=== PATIENT | male | born 1945 | race Caucasian/White ===

== ENCOUNTER 2018-04-25 22:00 | Observation (INO) ==
--- NOTE | 2018-04-25 22:27 | ERNOTE ---
Syncope ER HPI Stated Complaint: fall Time Seen by Provider: 04/25/18 22:10 Source: patient, family Exam Limitations: no limitations Immunizations: IMMUNIZATION HX Immunizations Up to Date Yes Allergies/Adverse Reactions: Allergies No Known Allergies Allergy (Unverified 04/25/18 22:17) Home Medications: HOME MEDICATIONS Clonazepam 0.5 mg PO TID PRN 04/26/18 [Last Taken Unknown] Docusate Sodium 100 mg PO DAILY 04/26/18 [Last Taken Unknown] Gabapentin [Neurontin] 300 mg PO BID 04/26/18 [Last Taken Unknown] Omeprazole 20 mg PO BID 04/26/18 [Last Taken Unknown] Rosuvastatin Calcium 40 mg PO HS 04/26/18 [Last Taken Unknown] Sertraline HCl [Zoloft] 50 mg PO DAILY 04/26/18 [Last Taken Unknown] Warfarin Sodium 5 mg PO QPM 04/26/18 [Last Taken Unknown] glipiZIDE [Glipizide] 5 mg PO DAILY 04/26/18 [Last Taken Unknown] - History of Present Illness Narrative: Family found patient on bathroom floor around 20:30, he cannot say how he got there, whether he fell, or what happened prior. He had difficulty ambulating, transferred in the ER with one assist. He currently denies any complaints, no pain, no shortness of breath Date (Duration): 04/25/18 Time (Timing): 20:30 Symptoms prior to episode: Present: unknown Activity at time of episode: Present: other Character of event: Absent: seizure activity observed, incontinent Location of Injury: Present: none Current Symptoms: Present: back to normal Prior Treament: Denies: recently seen, similar symptoms before Review of Systems - Review of Systems Constitutional: Absent: recent illness, fever EYE: Absent: vision changes ENT: Absent: nose congestion, sore throat Respiratory: Present: cough. Absent: shortness of breath Cardiology: Absent: chest pain Gastrointestinal/Abdominal: Absent: nausea, vomiting, abdominal pain Genitourinary: Present: no symptoms reported Musculoskeletal: Absent: back pain, neck pain Neurological: Absent: headache, weakness, numbness Medical History (Last Updated 04/25/18 @ 23:29 by Promise Lockhart MD) CVA (cerebral vascular accident) HX: [facility] anticoagulant use Poor historian Surgical History: Surgical History (Last Reviewed 04/25/18 @ 23:29 by Promise Lockhart MD) History of heart valve replacement History of open heart surgery Family History: Family History (Last Updated 04/25/18 @ 22:30 by Maya Betancourt RN) Other Poor historian Social History: Preferred Language Albanian Smoking Status Former smoker Alcohol Use occasionally Drug Use none No Social History Section defined Physical Exam - Physical Exam General Appearance: Present: wd/wn, alert, no apparent distress Head Exam: Present: normal inspection, no evidence of injury Eye Exam: Normal inspection: bilateral, PERRL: bilateral, EOMI: bilateral Neck: Present: normal inspection, supple Respiratory: Present: no respiratory distress, normal breath sounds, no accessory muscle use, lungs clear Cardiovascular/Chest: Present: regular rate, rhythm, no murmur Gastrointestinal/Abdominal: Present: normal bowel sounds, nontender, nondistended, soft Extremity Exam: Present: no edema Neurological Exam: Present: alert, oriented, normal mood/affect, no motor/sensory deficits Skin Exam: Present: normal color, warm/dry ED Progress - Results and Orders Patient's Lab Results:: I have reviewed the patient's lab results. - Vital Signs Patient's Vital Signs:: I have reviewed the patient's vital signs. Vital Signs: Vital Signs 04/25/18 22:13 Temperature 38.2 C H Pulse Rate 113 H Respiratory Rate 11 L Blood Pressure 131/84 O2 Sat by Pulse Oximetry 97 - EKG EKG: NSR - sinus tachycardia, , nonspecific ST T wave changes, other - first degree AV block EKG read: Interp. by me - CT/Ultrasound CT/Ultrasound Narrative: CT head: no acute findings CT chest: no focal infiltrate, moderate amount of contrast in right pleural space, appears chronic - Progress/Reassessment Chief Complaint: Syncopal Episode Progress Note-Subjective: 04/25/18 23:26 discussed Xray with radiologist, possible mass, cannot r/o pneumonia will get CT to evaluate further 04/26/18 00:52 discussed results with other daughter who is present now [facility]'t [facility] here patient meets SRIRS criteria with temp and HR but procalcitonin is very low, no obvious source of infection found, consider artificial valve, will give dose of antibiotics 04/26/18 00:[address] Barosy, okay to admit for observation for syncope Departure Clinical Impression: Over-anticoagulated Syncope Qualifiers: Syncope type: unspecified Qualified Code(s): R55 - Syncope and collapse - Departure Disposition: Still a patient Condition: Stable
[2018-04-25 22:37] LABS: Hemoglobin 15.3 gm/dL (13.5-18.0); Mean Cell Volume 91.5 fl (78-100); Mean Corpuscular Hemoglobin 31.1 pg (27-31); Mean Platelet Volume 9.4 fl (8-11.3); Neutrophil # 9.3 K/mm3 (1.3-6.0); Neutrophil % 85.3 % (42-75.0); Platelet Count 156 K/mm3 (150-450); Red Blood Count 4.92 M/mm3 (4.7-6.0); Red Cell Distribution Width 11.9 % (11.5-14.0); White Blood Count 10.9 K/mm3 (4.0-10.5)
[2018-04-25 22:56] LABS: ALT 13 U/L (19-67); AST 23 U/L (0-48); Albumin * 3.4 gm/dl (3.4-5.0); Alkaline Phosphatase * 87 U/L (50-170); Anion Gap 11.8 mmol/L (6.8-13.8); BUN/Creatinine Ratio 11.1 (9.0-21.6); Bilirubin, Total 0.7 mg/dL (0.0-1.1); Blood Urea Nitrogen 13 mg/dL (6-23); Ca. Corrected For Albumin 8.7 mg/dL (8.4-10.2); Calcium * 8.5 mg/dL (7.9-10.9); Carbon Dioxide 26.2 mmol/L (24-32.6); Chloride 98 mmol/L (97-106); Glucose * 340 mg/dL (70-110); Sodium 132 mmol/L (132-142); Total Protein 7.2 gm/dL (6.2-8.2); Troponin I Less than 0.017 ng/mL (0.00-0.10)
[2018-04-25 23:04] LABS: Prothrombin Time (Patient) 50.7 Seconds (9.0-11.0)
[2018-04-25 23:05] LABS: Partial Thrombolplastin Time 43.6 Seconds (24-32)
[2018-04-25 23:06] LABS: INR 4.99 INR (0.90-1.10)
[2018-04-25 23:18] LABS: Urine Bilirubin Negative (NEGATIVE); Urine Blood 50 /ul (NEGATIVE); Urine Ketone 50 mg/dL (NEGATIVE); Urine Nitrite Negative (NEGATIVE); Urine Protein 15 mg/dL (NEGATIVE); Urine Specific Gravity 1.025 SP.GR. (1.005-1.030); Urine Urobilinogen Normal (NORMAL)
[2018-04-25] MEDS ORDERED: NORMAL SALINE 1,000 ML IV PRN (23:21)
[2018-04-25] MEDS ORDERED: ACETAMINOPHEN 325 MG TABLET PO ONE (23:28)
[2018-04-25 23:39] LABS: Urine Appearance Clear (CLEAR); Urine Bacteria None Seen; Urine Color Yellow; Urine RBC 0-5 /hpf (0-5); Urine WBC None Seen /hpf (0-5)
[2018-04-25 23:40] LABS: Cocaine Ur Negative (NEGATIVE); Urine Barbiturate Negative (NEGATIVE); Urine Benzodiazepines Negative (NEGATIVE); Urine Opiates Negative (NEGATIVE); Urine PCP Negative (NEGATIVE); Urine THC Negative (NEGATIVE)
[2018-04-26] MEDS ORDERED: DEXTROSE 5 % IN WATER 100 ML BAG IV ONE (00:53)
[2018-04-26] MEDS ORDERED: NORMAL SALINE 1,000 ML IV ONE (01:46)
[2018-04-26] MEDS ORDERED: INSULIN REGULAR, HUMAN 100 UNITS/ML VIAL IV ONE (12:18)
[2018-04-26] MEDS ORDERED: clonazePAM 0.5 MG TABLET PO PRN (12:19)
[2018-04-26] MEDS ORDERED: GABAPENTIN 600 MG TABLET PO SCH (12:30)
[2018-04-26] MEDS ORDERED: DOCUSATE SODIUM 100 MG CAPSULE PO SCH (12:30)
[2018-04-26] MEDS ORDERED: glipiZIDE 5 MG TABLET PO SCH (12:30)
[2018-04-26] MEDS ORDERED: SERTRALINE HCL 50 MG TABLET PO SCH (12:30)
[2018-04-26] MEDS ORDERED: PANTOPRAZOLE SODIUM 20 MG TABLET.DR PO SCH (12:30)
[2018-04-26] MEDS ORDERED: GABAPENTIN 300 MG CAPSULE PO SCH (12:40)
--- NOTE | 2018-04-26 12:41 | PN ---
Subjective - Date and Time Seen Date: 04/26/18 Time: 12:27 Subjective Narrative: I lost consciousness last night but now I feel fine. 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 Patient lives with his daughter who discovered him on the bathroom floor unconscious but arousable. Daughter did not witness the fall and is not sure how long he was on the floor for. Patient reports that he was just urinating and all of a sudden passed out and does not recall anything after that, he explains that he does not know how he got on to the floor. He denies occurrence of this event in the past or any palpitations lightheadedness or dizziness.. Patient is normally seen at the [facility] but wished to be hospitalized at our facility. Upon arriving at the ER, head CT without contrast, EKG, labs, and chest x-rays were ordered. Head CT ruled out any acute changes or hemorrhage, checks x-ray demonstrated a hyperdense area in the left lung so chest CT was ordered for follow-up which revealed no acute changes but a pulling of fluid in the lower lobe of the left lung. The radiologist thinks this may be related to a pleurodesis with chest tubes done in the past. Patient's daughter reports that patient did have chest tubes and when he had his open heart surgery 17 years ago, so this might explain the abnormality on the chest CT. EKG demonstrates sinus tachycardia which has since resolved and also a first-degree heart block and nonspecific ST-T wave changes, however patient denies chest pain and or any other symptoms. We do not have a baseline EKG so we do not know of these changes are chronic. Patient's Coumadin was placed on hold due to a supratherapeutic INR of over 4. Repeat INR has been ordered. Therefore patient was placed in outpatient observation for reevaluation and close monitoring. - Review of Systems Generalized/Overall Review: Reports: No Symptoms Reported EENTM: Reports: No Symptoms Reported Respiratory: Reports: No Symptoms Reported Cardiac: Reports: Syncope Abdominal: Reports: No Symptoms Reported Genitourinary Symptoms: Reports: No Symptoms Reported Musculoskeletal Complaints: Reports: No Symptoms Reported Neurological: Reports: No Symptoms Reported Skin: Reports: No Symptoms Reported Endocrine: Reports: No Symptoms Reported - Vitals Vitals: Last Vital Signs Temp 36.9 C 04/26/18 08:55 Pulse 84 04/26/18 08:55 Resp 18 04/26/18 08:55 BP 124/63 04/26/18 08:55 Pulse Ox 95 04/26/18 08:55 - Abnormal Lab Findings Abnormal Lab Findings: Abnormal Lab Results 04/25/18 04/25/18 04/25/18 Range/Units 22:19 22:35 22:35 WBC 10.9 H (4.0-10.5) K/mm3 MCH 31.1 H (27-31) pg Immature Gran % (Auto) 0.60 H (0.001-0.429) % Immature Gran # (Auto) 0.06 H (0.000-0.0310) K/mm3 Neutrophils % 85.3 H (42-75.0) % Lymphocytes % 5.9 L (20-51) % Neutrophils # 9.3 H (1.3-6.0) K/mm3 Lymphocytes # 0.64 L (1.5-3.5) k/mm3 PT 50.7 H (9.0-11.0) Seconds INR (Anticoag Therapy) 4.99 H* (0.90-1.10) INR PTT (Enoc) 43.6 H (24-32) Seconds Random Glucose 340 H (70-110) mg/dL Lactic Acid, Venous (0.4-2.0) mmol/L ALT 13 L (19-67) U/L Procalcitonin (0.05-0.50) ng/mL Urine Protein (NEGATIVE) mg/dL Urine Glucose (UA) (NEGATIVE) mg/dL Urine Blood (NEGATIVE) /ul 04/25/18 04/25/18 04/26/18 Range/Units 22:35 22:35 00:00 WBC (4.0-10.5) K/mm3 MCH (27-31) pg Immature Gran % (Auto) (0.001-0.429) % Immature Gran # (Auto) (0.000-0.0310) K/mm3 Neutrophils % (42-75.0) % Lymphocytes % (20-51) % Neutrophils # (1.3-6.0) K/mm3 Lymphocytes # (1.5-3.5) k/mm3 PT (9.0-11.0) Seconds INR (Anticoag Therapy) (0.90-1.10) INR PTT (Enoc) (24-32) Seconds Random Glucose (70-110) mg/dL Lactic Acid, Venous 2.3 H* (0.4-2.0) mmol/L ALT (19-67) U/L Procalcitonin Less than 0.05 L (0.05-0.50) ng/mL Urine Protein 15 H (NEGATIVE) mg/dL Urine Glucose (UA) >=1000 H (NEGATIVE) mg/dL Urine Blood 50 H (NEGATIVE) /ul - Exam Constitutional: Present: Alert, Oriented x3, Cooperative, Well developed, Well nourished, No distress, Elderly ENT Exam: Present: normal ENT inspection, hearing grossly normal, pharynx normal, TMs normal Neck: Present: non-tender, full range of motion, supple, normal inspection, trachea midline Breasts: Present: Exam deferred Respiratory: Present: chest non-tender, lungs clear, normal breath sounds, no respiratory distress, no accessory muscle use Cardiovascular/Chest: Present: normal peripheral pulses, regular rate, rhythm, no chest tenderness, no edema, no gallop, no JVD, no murmur, other - Aortic click Abdomen: Present: Normal bowel sounds, soft, nontender, nondistended, no rebound tenderness, no hepatospenomegaly, no masses /Rectal: Present: Exam deferred Extremity: Present: normal range of motion, non-tender, normal inspection, no pedal edema, no calf tenderness Skin Exam: Present: normal color, warm/dry, no cyanosis Lymphatic: Present: no adenopathy Neurologic: Present: tow operator II-XII nml as tested, normal cerebellar test, no motor/sensory deficits, alert, normal mood/affect, oriented x 3 Appearance: Present: appropriate appearance, appropriate insight, neat, no memory impairment Eye contact: Present: cooperative, good eye contact, normal speech Thoughts: Present: normal thought pattern, no apparent hallucination Assessment/Plan Plan Narrative: Patient was admitted to outpatient observation for evaluation and monitoring. We will put Coumadin on hold reorder an INR.. 2D echo has also been ordered for evaluation of heart valves and cardiac function also to evaluate possible aortic aneurysm that was reported on chest CT report. Patient and his family has been informed of all the findings they are in agreement with the plan. - Problems/Diagnosis (1) Syncope and collapse Problem: Acute (2) Aortic valve replaced Problem: Chronic (3) Diabetes 1.5, managed as type 2 Problem: Chronic (4) Supratherapeutic INR Problem: Acute
[2018-04-26] MEDS ORDERED: CIPROFLOXACIN IN 5 % DEXTROSE 400 MG/200 ML BAG IV SCH (12:45)
[2018-04-26 12:48] LABS: Hemoglobin A1C 10.5 % (4.00-6.0)
--- NOTE | 2018-04-26 12:53 | DS ---
(1) Syncope and collapse Problem: Acute (2) Aortic valve replaced Problem: Chronic (3) Diabetes 1.5, managed as type 2 Problem: Chronic (4) Supratherapeutic INR Problem: Acute Description of Stay: 73-year-old male admitted for syncopal episode that occurred at his home was evaluated at bedside and was found to be afebrile and in no acute distress. There has been no recurrence of loss of consciousness and patient denies dizziness lightheadedness or any other symptoms. Patient maintains stable vitals and has sinus rhythm. 2D echo was ordered to evaluate cardiac function and to evaluate a a sending aortic aneurysm that was reported on chest CT. Patient's family was instructed to look for 2D echo results after discharge to take his PCP. Discharge planning is underway to send patient home. Procedures Performed: none Results and Findings: Lab Pending Results 04/25/18 22:19: WBC 10.9 H, RBC 4.92, Hgb 15.3, Hct 45.0, MCV 91.5, MCH 31.1 H, MCHC 34.0, RDW 11.9, Plt Count 156, MPV 9.4, Immature Gran % (Auto) 0.60 H, Immature Gran # (Auto) 0.06 H, Neutrophils % 85.3 H, Lymphocytes % 5.9 L, [place] cytes % 7.8, Eosinophils % 0.0, Basophils % 0.4, Nucleated RBC % 0.0, Neutrophils # 9.3 H, Lymphocytes # 0.64 L, Monocytes # 0.9, Eosinophils # 0.0, Absolute Basophils 0.0 04/25/18 22:25: VBG pH 7.402 04/25/18 22:35: PT 50.7 H, INR (Anticoag Therapy) 4.99 H*, PTT (Enoc) 43.6 H 04/25/18 22:35: Sodium 132, Plasma Sodium 136, Potassium 4.0, Chloride 98, Carbon Dioxide 26.2, Anion Gap 11.8, BUN 13, Creatinine 1.17, Est GFR (Non-Af Amer) 65, BUN/Creatinine Ratio 11.1, Random Glucose 340 H, Calcium 8.5, Calcium Adj for Albumin 8.7, Total Bilirubin 0.7, AST 23, ALT 13 L, Alkaline Phosphatase 87, Troponin I Less than 0.017, Total Protein 7.2, Albumin 3.4, Ethyl Alcohol Less than 3.0, Serum Ketones Negative 04/25/18 22:35: Lactic Acid, Venous 2.3 H* 04/25/18 22:35: Influenza Type A Ag Negative, Influenza Type B Ag Negative 04/25/18 22:35: Urine Color Yellow, Urine Appearance Clear, Urine pH 6.0, Ur Specific [place] 1.025, Urine Protein 15 H, Urine Glucose (UA) >=1000 H, Urine Ketones 50, Urine Blood 50 H, Urine Nitrate Negative, Urine Bilirubin Negative, Prot Sulfosalicylic Acd Negative, Urine Urobilinogen Normal, Ur Leukocyte Esterase Negative, Urine RBC 0-5, Urine WBC None seen, Ur Epithelial Cells None seen, Urine Bacteria None seen, Urine Culture Comments No culture indicated 04/25/18 22:35: Urine Opiates Screen Negative, Barbiturate Screen Negative, Ur Phencyclidine Scrn Negative, Urine Amphetamine Negative, U Benzodiazepines Scrn Negative, Urine Cocaine Screen Negative, Urine Marijuana (THC) Negative 04/25/18 22:35: Creatine Kinase 51 04/26/18 00:00: Procalcitonin Less than 0.05 L 04/26/18 01:30: Lactic Acid, Venous 1.6 Discharge Location: Home Disposition: Home self-care Condition: Stable Face to Face Encounter completed per [facility] Guidelines: No Discharge Activity: Activity as tolerated Discharge Diet: Consistent carbs Additional Patient Instructions (free text): -Appointment scheduled to discuss Medicare options for Thursday at 0915. Call [phone] for list of information to bring with him to the appointment or to reschedule. -May call [phone] for further information on Meals on Wheels if interested. -Call patient's daughter Maria D with updated plan of care at [phone]. Complete Home Medications List: Complete Home Medication List: Clonazepam 0.5 mg PO TID PRN 04/26/18 Docusate Sodium 100 mg PO DAILY 04/26/18 Gabapentin [Neurontin] 300 mg PO BID 04/26/18 Omeprazole 20 mg PO BID 04/26/18 Rosuvastatin Calcium 40 mg PO HS 04/26/18 Sertraline HCl [Zoloft] 50 mg PO DAILY 04/26/18 glipiZIDE [Glipizide] 5 mg PO DAILY 04/26/18
[2018-04-26 13:30] LABS: Prothrombin Time (Patient) 32.7 Seconds (9.0-11.0)
[2018-04-26 13:46] LABS: INR 3.23 INR (0.90-1.10)
[2018-04-26 15:42] VITALS: BP 132/63
[2018-04-26] MEDS ORDERED: INSULIN LISPRO 100 UNITS/ML VIAL SC SCH (17:00)
[2018-04-26] MEDS ORDERED: ROSUVASTATIN CALCIUM 20 MG TABLET PO SCH (21:00)
--- NOTE | 2018-04-29 13:18 | HP ---
Chief Complaint - Chief Complaint Date of Service: 04/26/18 Time of Service: 11:00 Chief Complaint: I fell and lost conciousness. 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 Patient lives with his daughter who discovered him on the bathroom floor unconscious but arousable. Daughter did not witness the fall and is not sure how long he was on the floor for. Patient reports that he was just urinating and all of a sudden passed out and does not recall anything after that, he explains that he does not know how he got on to the floor. He denies occurrence of this event in the past or any palpitations lightheadedness or dizziness.. Patient is normally seen at the [facility] but wished to be hospitalized at our facility. Upon arriving at the ER, head CT without contrast, EKG, labs, and chest x-rays were ordered. Head CT ruled out any acute changes or hemorrhage, checks x-ray demonstrated a hyperdense area in the left lung so chest CT was ordered for follow-up which revealed no acute changes but a pulling of fluid in the lower lobe of the left lung. The radiologist thinks this may be related to a pleurodesis with chest tubes done in the past. Patient's daughter reports that patient did have chest tubes and when he had his open heart surgery 17 years ago, so this might explain the abnormality on the chest CT. EKG demonstrates sinus tachycardia which has since resolved and also a first-degree heart block and nonspecific ST-T wave changes, however patient denies chest pain and or any other symptoms. We do not have a baseline EKG so we do not know of these changes are chronic. Patient's Coumadin was placed on hold due to a supratherapeutic INR of over 4. Repeat INR has been ordered. Therefore patient was placed in outpatient observation for reevaluation and close monitoring. Medical History (Last Reviewed 04/26/18 @ 02:47 by Monica Hanna RN) Alcohol dependence in remission Anemia Anxiety Aortic valve stenosis Atrial fibrillation CVA (cerebral vascular accident) Chronic post-traumatic stress disorder (PTSD) Diabetes mellitus HX: computer terminal operator anticoagulant use Hyperlipidemia Poor historian Pulmonary nodule RECURRENT DEPRESSION DISORDER Surgical History: Surgical History (Last Reviewed 04/26/18 @ 11:35 by Yessica Hogan) History of heart valve replacement History of heart valve replacement with mechanical valve History of open heart surgery Family History: Family History (Last Updated 04/29/18 @ 13:11 by Jina Mcadams MD) Other Poor historian Social History: Patient Lives/Resources Home Utilized Occupation Retired Preferred Language Serbian Do you have any oriental orthodox or Yes: Congregational cultural preference? Smoking Status Former smoker Have you smoked in the past 12 No months Do you dip or chew tobacco No Alcohol Use occasionally Drug Use none No Social History Section defined Peds Patient Hx - Developmental: No Pertinent Hx Peds Patient Hx - Medical: No Pertinent Hx Peds Patient Hx - Cardiac/Respiratory: No Pertinent Hx Peds Patient Hx - Surgical: No Surgical History Patient History - Cancer: No Hx of Cancer Review Of Systems (GEN) - Review of Systems Generalized/Overall Review: Present: No Symptoms Reported. Absent: Chills EENTM: Present: No Symptoms Reported Respiratory: Present: No Symptoms Reported Cardiac: Present: No Symptoms Reported Abdominal: Present: No Symptoms Reported Genitourinary: Present: No Symptoms Reported Musculoskeletal: Present: No Symptoms Reported Neurological: Present: Other - LOC 1 day ago. Skin: Present: No Symptoms Reported Endocrine: Present: No Symptoms Reported Immunizations: IMMUNIZATION HX Immunizations Up to Date Yes Allergies/Adverse Reactions: Allergies Allergy/AdvReac Type Severity Reaction Status Date / Time No Known Allergies Allergy Unverified 04/25/18 22:17 Home Medications: HOME MEDICATIONS Clonazepam 0.5 mg PO TID PRN 04/26/18 [Last Taken Unknown] Docusate Sodium 100 mg PO DAILY 04/26/18 [Last Taken Unknown] Gabapentin [Neurontin] 300 mg PO BID 04/26/18 [Last Taken Unknown] Omeprazole 20 mg PO BID 04/26/18 [Last Taken Unknown] Rosuvastatin Calcium 40 mg PO HS 04/26/18 [Last Taken Unknown] Sertraline HCl [Zoloft] 50 mg PO DAILY 04/26/18 [Last Taken Unknown] glipiZIDE [Glipizide] 5 mg PO DAILY 04/26/18 [Last Taken Unknown] Exam - Exam Vital Signs: Vital Signs - Last Taken Temp 36.8 C 04/26/18 15:41 Pulse 68 04/26/18 15:41 Resp 16 04/26/18 15:41 BP 132/63 04/26/18 15:41 Pulse Ox 97 04/26/18 15:41 Constitutional: Present: Alert, Oriented x3, Cooperative, Well developed, Well nourished, No distress ENT Exam: Present: normal ENT inspection, pharynx normal, hard of hearing Eye Exam: bilateral eye: normal inspection, PERRL, EOMI, abnormal EOM Neck: Present: non-tender, full range of motion, supple, normal inspection, trachea midline Back Exam: Present: normal inspection, no CVA tenderness, no vertebral tenderness Breasts: Present: Exam deferred Respiratory: Present: chest non-tender, lungs clear, normal breath sounds, no respiratory distress, no accessory muscle use Cardiovascular/Chest: Present: normal peripheral pulses, regular rate, rhythm, no chest tenderness, no edema, no gallop, no JVD, no murmur Peripheral Pulses: carotid (R): 3+, carotid (L): 3+, femoral (R): 3+, femoral (L): 3+, dorsalis-pedis (R): 3+, dorsalis-pedis (L): 3+ Abdomen: Present: Normal bowel sounds, soft, nontender, nondistended, no rebound tenderness, no hepatospenomegaly, no masses /Rectal: Present: Exam deferred Extremity: Present: normal range of motion, non-tender, normal inspection, no pedal edema, no calf tenderness, normal capillary refill Skin Exam: Present: normal color, warm/dry, no cyanosis Lymphatic: Present: no adenopathy Neurologic: Present: computer game designer II-XII nml as tested, normal cerebellar test, no motor/sensory deficits, alert, normal mood/affect, oriented x 3 Appearance: Present: appropriate appearance, appropriate insight, neat, no memory impairment Eye contact: Present: cooperative, good eye contact, normal speech Thoughts: Present: normal thought pattern, no apparent hallucination Diagnostic Studies: Laboratory Results WBC 10.9 K/mm3 (4.0-10.5) H 04/25/18 22:19 RBC 4.92 M/mm3 (4.7-6.0) 04/25/18 22:19 Hgb 15.3 gm/dL (13.5-18.0) 04/25/18 22:19 Hct 45.0 % (42.0-52.0) 04/25/18 22:19 MCV 91.5 fl (78-100) 04/25/18 22:19 MCH 31.1 pg (27-31) H 04/25/18 22:19 MCHC 34.0 g/dl (32-36) 04/25/18 22:19 RDW 11.9 % (11.5-14.0) 04/25/18 22:19 Plt Count 156 K/mm3 (150-450) 04/25/18 22:19 MPV 9.4 fl (8-11.3) 04/25/18 22:19 Immature Gran % (Auto) 0.60 % (0.001-0.429) H 04/25/18 22:19 Immature Gran # (Auto) 0.06 K/mm3 (0.000-0.0310) H 04/25/18 22:19 Neutrophils % 85.3 % (42-75.0) H 04/25/18 22:19 Lymphocytes % 5.9 % (20-51) L 04/25/18 22:19 Monocytes % 7.8 % (0.0-9) 04/25/18 22:19 Eosinophils % 0.0 % (0.0-3.0) 04/25/18 22:19 Basophils % 0.4 % (0.0-1.0) 04/25/18 22:19 Nucleated RBC % 0.0 k/mm3 (0-1) 04/25/18 22:19 Neutrophils # 9.3 K/mm3 (1.3-6.0) H 04/25/18 22:19 Lymphocytes # 0.64 k/mm3 (1.5-3.5) L 04/25/18 22:19 Monocytes # 0.9 k/mm3 (0.0-1.0) 04/25/18 22:19 Eosinophils # 0.0 k/mm3 (0.0-0.7) 04/25/18 22:19 Absolute Basophils 0.0 k/mm3 (0.0-0.1) 04/25/18 22:19 PT 32.7 Seconds (9.0-11.0) H 04/26/18 13:18 INR (Anticoag Therapy) 3.23 INR (0.90-1.10) H 04/26/18 13:18 PTT (Treutlen) 43.6 Seconds (24-32) H 04/25/18 22:35 VBG pH 7.402 (7.32-7.43) 04/25/18 22:25 Sodium 132 mmol/L (132-142) 04/25/18 22:35 Plasma Sodium 136 mmol/L (130-142) 04/25/18 22:35 Potassium 4.0 mmol/L (3.4-4.6) 04/25/18 22:35 Chloride 98 mmol/L (97-106) 04/25/18 22:35 Carbon Dioxide 26.2 mmol/L (24-32.6) 04/25/18 22:35 Anion Gap 11.8 mmol/L (6.8-13.8) 04/25/18 22:35 BUN 13 mg/dL (6-23) 04/25/18 22:35 Creatinine 1.17 mg/dL (0.4-1.4) 04/25/18 22:35 Est GFR (Non-Af Amer) 65 mL/min (60-130) 04/25/18 22:35 BUN/Creatinine Ratio 11.1 (9.0-21.6) 04/25/18 22:35 Random Glucose 340 mg/dL (70-110) H 04/25/18 22:35 Mean Blood Glucose 264 mg/dL 04/26/18 00:01 Hemoglobin A1c 10.5 % (4.00-6.0) H 04/26/18 00:01 Lactic Acid, Venous 1.6 mmol/L (0.4-2.0) 04/26/18 01:30 Calcium 8.5 mg/dL (7.9-10.9) 04/25/18 22:35 Calcium Adj for Albumin 8.7 mg/dL (8.4-10.2) 04/25/18 22:35 Total Bilirubin 0.7 mg/dL (0.0-1.1) 04/25/18 22:35 AST 23 U/L (0-48) 04/25/18 22:35 ALT 13 U/L (19-67) L 04/25/18 22:35 Alkaline Phosphatase 87 U/L (50-170) 04/25/18 22:35 Creatine Kinase 51 U/L (0-259) 04/25/18 22:35 Troponin I Less than 0.017 ng/mL (0.00-0.10) 04/25/18 22:35 Total Protein 7.2 gm/dL (6.2-8.2) 04/25/18 22:35 Albumin 3.4 gm/dl (3.4-5.0) 04/25/18 22:35 Procalcitonin Less than 0.05 ng/mL (0.05-0.50) L 04/26/18 00:00 Urine Color Yellow 04/25/18 22:35 Urine Appearance Clear (CLEAR) 04/25/18 22: Urine pH 6.0 pH (5.0-7.0) 04/25/18: Ur Specific [place] 1.025 SP.GR. (1.005-1.030) 04/25/18 22:35 Urine Protein 15 mg/dL (NEGATIVE) H 04/25/18 22: Urine Glucose (UA) >=1000 mg/dL (NEGATIVE) H 04/25/18:35 Urine Ketones 50 mg/dL (NEGATIVE) 04/25/18 22:35 Urine Blood 50 /ul (NEGATIVE) H 04/25/18 22:35 Urine Nitrate Negative (NEGATIVE) 04/25/18: Urine Bilirubin Negative mg/dl (NEGATIVE) 04/25/18: Prot Sulfosalicylic Acd Negative mg/dL (0) 04/25/18:35 Urine Urobilinogen Normal EU/dl (NORMAL) 04/25/18 22: Ur Leukocyte Esterase Negative /ul (NEGATIVE) 04/25/18:35 Urine RBC 0-5 /hpf (0-5) 04/25/18 22:35 Urine WBC None seen /hpf (0-5) 04/25/18 22:35 Ur Epithelial Cells None seen /hpf (0-5) 04/25/18 22:35 Urine Bacteria None seen (NONE) 04/25/18: Urine Culture Comments No culture indicated 04/25/18 22: Urine Opiates Screen Negative (NEGATIVE) 04/25/18 22: Barbiturate Screen Negative (NEGATIVE) 04/25/18: Ur Phencyclidine Scrn Negative (NEGATIVE) 04/25/18 22:35 Urine Amphetamine Negative (NEGATIVE) 04/25/18 22:35 U Benzodiazepines Scrn Negative (NEGATIVE) 04/25/18 22:35 Urine Cocaine Screen Negative (NEGATIVE) 04/25/18 22:35 Urine Marijuana (THC) Negative (NEGATIVE) 04/25/18 22:35 Ethyl Alcohol Less than 3.0 mg/dL (0.0-10.0) 04/25/18 22:35 Serum Ketones Negative (NEGATIVE) 04/25/18 22:35 Influenza Type A Ag Negative (NEGATIVE) 04/25/18 22:35 Influenza Type B Ag Negative (NEGATIVE) 04/25/18 22:35 Assessment/Plan - Narrative Narrative: Patient was admitted to outpatient observation for evaluation and monitoring. We will put Coumadin on hold reorder an INR.. 2D echo has also been ordered for evaluation of heart valves and cardiac function also to evaluate possible aortic aneurysm that was reported on chest CT report. Patient and his family has been informed of all the findings they are in agreement with the plan. - Assessment/Plan (1) Syncope and collapse Problem: Acute (2) Aortic valve replaced Problem: Chronic (3) Diabetes 1.5, managed as type 2 Problem: Chronic (4) Supratherapeutic INR Problem: Acute
--- NOTE | 2018-05-03 09:29 | ECHO ---
This report is available in the EMR
== END 2018-04-26 16:15 | disposition home or self-care (01) ==
LOC: ER 22:00 → MS 22:00
PROVIDERS: ADMIT Family Medicine; ATTEND Family Medicine
DX: R55 Syncope and collapse
CPT/HCPCS: 36415; 70450; 71020; 71046; 71260; 80053; 80307; 80320; 81001; 82009; 82550; 82800; 83036; 83605; 84145; 84484; 85025; 85610; 85730; 87040; 87400; 87449; 93005; 93306; 96361; 96365; 96366; 99285; G0378; G0479; G0481